=== PATIENT | female | born 1930 | race Caucasian/White ===

== ENCOUNTER 2020-10-03 11:01 | Inpatient (IN) | payer BC ==
[~2020-10-03] VITALS: Ht 147.3 cm; Wt 48.5 kg
[~2020-10-03 11:01] MED LIST: SORBITOL SOLUTION 30 ML PO ONE
--- NOTE | 2020-10-03 11:07 | NUR ---
[id number], from home, c/o slurred speech, Last known well per report was last night, BS 180, to ER bed 11, hooked to monitoring analyst, BP cuff and POX. vss. changed to hosp gown, warm blanket provided, patient AAO x 4, breathing even and unlabored. NAD noted. Dr Guerrero at bedside. NIH done. Result of 0. Started IV peripheral line at RAC 18g. blood drawn and given to director geophysical laboratory
[2020-10-03 11:24] LABS: MEAN CORPUSCULAR HGB CONC 34 g/dl (31.0-36.0); WHITE BLOOD COUNT (AUTO) 7.7 K/uL (4.3-11.0)
[2020-10-03 11:27] LABS: BASOPHILS % (AUTO) 0.6 % (0.0-2.0); LYMPHOCYTES % (AUTO) 13.4 % (20.0-44.0); MEAN CORPUSCULAR VOLUME 94 fL (82-100); MONOCYTES # (AUTO) 0.5 /CMM (0.1-1.30); MONOCYTES % (AUTO) 7.2 % (2.0-12.0); NEUTROPHILS # (AUTO) 6.1 /CMM (1.8-8.9); NEUTROPHILS % (AUTO) 78.8 % (43.0-81.0); PLATELET COUNT (AUTO) 350 /CMM (150-450); RED BLOOD CELL COUNT(AUTO) 1.66 MIL/uL (4.0-5.2)
[2020-10-03 11:29] LABS: HEMATOCRIT 16 % (33-45); HEMOGLOBIN 5.3 g/dL (11.5-14.8)
[2020-10-03] MEDS ORDERED: IV NS 0.9% 500 ML BAG IV ONE (11:30)
--- NOTE | 2020-10-03 11:41 | NUR ---
SENIOR MANUFACTURING SUPERVISOR AT BEDSIDE
[2020-10-03 11:45] LABS: CALCIUM, SERUM 8.8 mg/dL (8.5-10.1); CREATININE 0.9 mg/dL (0.6-1.3); POTASSIUM 3.8 mmol/L (3.5-5.1)
[2020-10-03 11:49] LABS: ALBUMIN 2.8 g/dL (3.4-5.0); BILIRUBIN,DIRECT 0.1 mg/dL (0.0-0.2); BILIRUBIN,TOTAL 0.4 mg/dL (0.2-1.0); TOTAL PROTEIN, SERUM 6.1 g/dL (6.4-8.2)
[2020-10-03] MEDS ORDERED: SIMV-46 PO (11:50)
[2020-10-03] MEDS ORDERED: METO50TA16 PO (11:50)
[2020-10-03] MEDS ORDERED: TICA90TA PO (11:50)
[2020-10-03] MEDS ORDERED: APIX5TAB PO (11:50)
[2020-10-03] MEDS ORDERED: LOSA25TA27 PO (11:50)
[2020-10-03] MEDS ORDERED: LEVO75TA7 PO (11:50)
[2020-10-03 11:58] LABS: LYMPHOCYTES % (MANUAL) 18 % (16-48); MONOCYTES % (MANUAL) 10 % (0-11.0)
[2020-10-03 12:01] LABS: NEUTROPHILS % (MANUAL) 99555 (42-76)
[2020-10-03] MEDS ORDERED: PANTOPRAZOLE 40 MG VIAL IV SCH (12:30)
[2020-10-03] MEDS ORDERED: MAG HYDROX/AL HYDROX/SIMETH 30 ML UDC PO PRN (13:00)
[2020-10-03] MEDS ORDERED: Z GUARD REMEDY 2 OZ OINT TP PRN (13:00)
[2020-10-03] MEDS ORDERED: ONDANSETRON HCL/PF 4 MG/2 ML VIAL IVP PRN (13:00)
[2020-10-03] MEDS ORDERED: HYDROCODONE/APAP 5/325MG TABLET PO PRN (13:00)
[2020-10-03] MEDS ORDERED: MAGNESIUM HYDROXIDE 30 ML UDC PO PRN (13:00)
[2020-10-03] MEDS ORDERED: ACETAMINOPHEN 325 MG TABLET PO PRN (13:00)
--- NOTE | 2020-10-03 15:30 | NUR ---
patient not able to provide urine sample at this time. aware
--- NOTE | 2020-10-03 15:39 | NUR ---
PATIENT SIGNED CONSENT FOR BLOOD TRANSFUSION
[2020-10-03] MEDS ORDERED: ANESTHESIA TRAY IN PYXIS 1 EA TRAY MC ONE (16:34)
--- NOTE | 2020-10-03 16:57 | NUR ---
FOLLOWED UP BLOOD UNIT FROM MAIN LAB. NOT YET READY. PER CLINICAL NURSE SPECIALIST, SHE HAS TO RESTART DOING EVERYTHING TO MAKE SURE PATIENT DOES NOT/HAVE ANTIBODY
--- NOTE | 2020-10-03 17:22 | NUR ---
SPOKE TO DR KEARNS. WOULD LIKE TO INQUIRE IF PATIENT WILL AGREE WITH COLONOSCOPY AND ENDOSCOPY. AND THE LAST TIME PATIENT TOOK ELIQUIS. WILL CALL BACK AT [phone]
--- NOTE | 2020-10-03 18:11 | NUR ---
CALLED DR KEARNS BACK AND INFORMED PATIENT AGREES WITH PROCEDURE (COLONOSCOPY AND ENDOSCOPY) DR WILL ASK PATIENT TO SIGN CONSENT TOMORROW. ALSO, PATIENT IS WILLING TO TAKE GO LIGHTLY. LAST TOOK ELIQUIS YESTERDAY AM. RECEIVED TELEPHONE ORDER FROM DR KEARNS OF 1 [address] GO LIGHTLY PO (FINISH BY TOMORROW) AND NPO STARTING MIDNIGHT (EXCEPT MEDICATION). CARRIED OUT.
[2020-10-03] MEDS ORDERED: PEG 3350/NA SULF,BICARB,CL/KCL 4,000 ML BOTTLE PO ONE (18:30)
--- NOTE | 2020-10-03 18:57 | NUR ---
PATIENT STILL UNABLE TO PROVIDE URINE SAMPLE AT THIS TIME.
--- NOTE | 2020-10-03 19:19 | NUR ---
URINE SAMPLE COLLECTED AND SENT TO LAB
--- NOTE | 2020-10-03 19:32 | NUR ---
ENDORSEMENT GIVEN TO MATT MEJIAS FOR JARRED
--- NOTE | 2020-10-03 20:00 | NUR ---
BLOOD TRANSFUSION INITIATED. 2RNS AT BEDSIDE. VSS.
[2020-10-03 20:29] LABS: CREATININE, URINE 63.7 MG/DL (30.0-125.0); URINE TOTAL PROTEIN 20.1 mg/dL (0-11.9)
--- NOTE | 2020-10-03 21:00 | NUR ---
PT CLEANED AND REPOSITIONED, VSS. BLOOD TRANSFUSING.
[2020-10-03 21:04] LABS: BILIRUBIN,URINE NEGATIVE (NEGATIVE); BLOOD, URINE TRACE-INTA Ery/uL (NEGATIVE); COLOR,URINE YELLOW (YELLOW); LEUKOCYTE ESTERASE ,URINE MODERATE (NEGATIVE); NITRITE, URINE NEGATIVE (NEGATIVE); PH,URINE 5.5 (5.0-8.0); PROTEIN,URINE NEGATIVE (NEGATIVE); UGLUCOSE NEGATIVE (NEGATIVE); UROBILINOGEN,URINE 0.2 EU/dL (0.2)
[2020-10-03] MEDS: IV NS 0.9% 1,000 ML IV PRN (21:20)
[2020-10-03 21:31] LABS: BACTERIA,URINE 4+ /HPF (None Seen); WBC,URINE 21-50 /HPF (0-3)
[2020-10-03 21:33] LABS: EOSINOPHIL,URINE RARE
--- NOTE | 2020-10-03 21:55 | NUR ---
PT RESTING COMFORTABLY. VSS. PROVIDED WITH BLANKETS AND PILLOW. BLOOD CURRENTLY BEING TRANSFUSED, VSS.
--- NOTE | 2020-10-03 23:40 | NUR ---
SECOND BLOOD TRANSFUSION INITIATED. 2 RNS AT BEDSIDE.
--- NOTE | 2020-10-04 00:22 | NUR ---
PT REQUESTED TO TURN THE LIGHTS OFF. PT RESTING COMFORTABLY. PROVIDED WITH MORE BLANKETS, VSS. BLOOD TRANSFUSING.
--- NOTE | 2020-10-04 01:33 | NUR ---
PT AWAKE IN BED, REPOSTIOEND TO LEFT. VSS. BLOOD TRANSFUSING.
--- NOTE | 2020-10-04 01:43 | NUR ---
PT HAS HAD THREE BOWEL MOVEMENTS. PT AWAKE IN BED, ON MONITOR AND PULSE OX. VSS.
--- NOTE | 2020-10-04 03:17 | NUR ---
PT REPOSITIONED TO THE RIGHT, RESTING.
--- NOTE | 2020-10-04 04:44 | NUR ---
PT AWAKE IN BED, RESTING COMFORTABLY. VSS.
--- NOTE | 2020-10-04 05:10 | NUR ---
PT HAD ANOTHER 3 B.M.
[2020-10-04 05:19] LABS: BASOPHILS # (AUTO) 0.1 /CMM (0.0-0.2); BASOPHILS % (AUTO) 0.4 % (0.0-2.0); HEMATOCRIT 32 % (33-45); HEMOGLOBIN 10.5 g/dL (11.5-14.8); LYMPHOCYTES # (AUTO) 1.2 /CMM (0.8-4.8); LYMPHOCYTES % (AUTO) 8.5 % (20.0-44.0); MEAN CORPUSCULAR HGB CONC 33 g/dl (31.0-36.0); MEAN CORPUSCULAR VOLUME 92 fL (82-100); MONOCYTES # (AUTO) 1.3 /CMM (0.1-1.30); NEUTROPHILS # (AUTO) 11.8 /CMM (1.8-8.9); NEUTROPHILS % (AUTO) 82.1 % (43.0-81.0); PLATELET COUNT (AUTO) 322 /CMM (150-450); RED BLOOD CELL COUNT(AUTO) 3.44 MIL/uL (4.0-5.2); WHITE BLOOD COUNT (AUTO) 14.4 K/uL (4.3-11.0)
[2020-10-04 05:38] LABS: ALBUMIN 2.9 g/dL (3.4-5.0); BILIRUBIN,TOTAL 1.1 mg/dL (0.2-1.0); CALCIUM, SERUM 8.5 mg/dL (8.5-10.1); CREATININE 0.9 mg/dL (0.6-1.3); MAGNESIUM 2.2 mg/dL (1.8-2.4); PHOSPHORUS 2.4 mg/dL (2.5-4.9); POTASSIUM 3.7 mmol/L (3.5-5.1); TOTAL PROTEIN, SERUM 6.6 g/dL (6.4-8.2)
--- NOTE | 2020-10-04 06:45 | NUR ---
PT RESTING COMFORTABLY. VSS.
--- NOTE | 2020-10-04 06:57 | NUR ---
CONSENT FOR EGD AND COLONOSCOPY OBTAINED OVER THE PHONE FROM THE SON, EDITH.
[2020-10-04] MEDS: LEVOTHYROXINE SODIUM 75 MCG TABLET PO SCH (07:30)
--- NOTE | 2020-10-04 08:00 | NUR ---
CONTINUES TO BE NPO AT THIS TIME. PATIENT A/OX3, BREATHING EVEN AND UNLABORED, AMBULATORY WITH STEADY GAIT. NO DISTRESS NOTED.
--- NOTE | 2020-10-04 09:21 | NUR ---
PATIENT A/OX3, REFUSING TO DRINK PREP FOR GOLYTELY. REMOVED IV LINE. REFUSING TO HAVE MRI DONE. CALLED SON EDITH RE: REFUSAL OF TREATMENT. WILL INFORM ATTENDING MD.
--- NOTE | 2020-10-04 11:54 | NUR ---
PATIENT TAKEN TO SURGERY FOR EGD AND COLONOSCOPY. CELIA HINDS AT BEDSIDE AND GAVE AN ORDER FOR HALDOL IM X1. MEDICATION GIVEN.
--- NOTE | 2020-10-04 11:56 | NUR ---
CAR HINDS AWARE OF PATIENT REFUSING MRI, PATIENT WILL NOT BE ABLE TO STAY STILL FOR THE PROCEDURE. CAR HINDS SAID ITS OK.
[2020-10-04] MEDS ORDERED: HALOPERIDOL LACTATE INJ 5 MG/ML VIAL IM ONE (12:00)
[2020-10-04] MEDS ORDERED: NEUTRA PHOS 1 POWD.PACKET PO ONE (12:00)
--- NOTE | 2020-10-04 13:11 | NUR ---
patient came back from surgery, no distress noted, vitals stable. Received orders to resume home meds and diet, to advance as tolerated.
[2020-10-04] MEDS: CEFTRIAXONE 1 G in IV D5W 50 ML IV SCH (13:24)
[2020-10-04] MEDS: IV NS 0.9% 1,000 ML IV PRN (13:39)
--- NOTE | 2020-10-04 13:55 | NUR ---
PATIENT OFFERED FOOD, BUT PATIENT REFUSED TO EAT AT THIS TIME, SHE STATED, "IM NOT HUNGRY"
--- NOTE | 2020-10-04 16:50 | NUR ---
PATIENT RESTING, NO DISTRESS NOTED. PERICARE PROVIDED.
--- NOTE | 2020-10-04 18:43 | NUR ---
PATIENT REFUSED TO EAT DINNER, FOOD AT BEDSIDE. PATIENT CALM AT THIS TIME, AMBULATORY WITH STEADY GAIT.
--- NOTE | 2020-10-04 20:43 | NUR ---
LAB CALLED REGARDING NEGATIVE COVID RESULT
--- NOTE | 2020-10-04 22:47 | NUR ---
TELE 311-3
--- NOTE | 2020-10-04 23:09 | NUR ---
REPORT GIVEN TO LYDIA MEJIAS FOR JARRED
--- NOTE | 2020-10-04 23:29 | NUR ---
PT TRANSFERED PER ACLS PROTOCOL
[2020-10-04 23:30] VITALS: BP 148/78
--- NOTE | 2020-10-04 23:30 | NUR ---
burn out scarfing operator admitting notes received pt from er safely transferred to bed ,ambulatory with assist steady, awake alert and oriented x1 verbally responsive but confused , able to make simple needs known, respirations even and unlabored with equal rise and fall of chest, denies any pain or discomfort , iv site to right ac#20g intact and patent, on neonatal intensive care unit nurse sr 96. on clear liquids, safety precautions rendered, low bed and locked, bed alarm in place, toileting offered, oriented to staff and call light and kept within reach, all needs attended at this time, skin is intact, belongings list done, will continue to monitor.
[2020-10-05] VITALS: BP 127/78
[2020-10-05 04:00] VITALS: BP 140/79
[2020-10-05] MEDS: IV NS 0.9% 1,000 ML IV PRN (04:12)
--- NOTE | 2020-10-05 06:25 | NUR ---
metal burnisher closing notes pt ambulatory with assist steady, awake alert and oriented x1 verbally responsive but confused , able to make simple needs known, respirations even and unlabored with equal rise and fall of chest, denies any pain or discomfort , iv site to right ac#20g intact and patent, on cardiac cath lab manager st 103. on clear liquids, water offered and tolerated well, safety precautions rendered, low bed and locked, bed alarm in place, toileting offered, patient currently wants to sit in chair and is within site, remains safe, refused to lay down at this time states " i want to sit up in the chair".call light kept within reach, needs frequent reorientation all needs attended at this time, will continue to monitor and endorse to next shift, despite education patient is refusing ivf as ordered.
[2020-10-05 06:28] LABS: BASOPHILS % (AUTO) 0.1 % (0.0-2.0); HEMATOCRIT 32 % (33-45); HEMOGLOBIN 10.7 g/dL (11.5-14.8); LYMPHOCYTES # (AUTO) 0.6 /CMM (0.8-4.8); LYMPHOCYTES % (AUTO) 5.1 % (20.0-44.0); MEAN CORPUSCULAR HGB CONC 33 g/dl (31.0-36.0); MEAN CORPUSCULAR VOLUME 91 fL (82-100); MONOCYTES % (AUTO) 8.2 % (2.0-12.0); NEUTROPHILS # (AUTO) 10.3 /CMM (1.8-8.9); NEUTROPHILS % (AUTO) 86.6 % (43.0-81.0); PLATELET COUNT (AUTO) 386 /CMM (150-450); RED BLOOD CELL COUNT(AUTO) 3.53 MIL/uL (4.0-5.2); WHITE BLOOD COUNT (AUTO) 11.8 K/uL (4.3-11.0)
[2020-10-05 07:04] LABS: CALCIUM, SERUM 8.7 mg/dL (8.5-10.1); CREATININE 0.8 mg/dL (0.6-1.3); MAGNESIUM 2.3 mg/dL (1.8-2.4); PHOSPHORUS 2.9 mg/dL (2.5-4.9); POTASSIUM 3.1 mmol/L (3.5-5.1)
--- NOTE | 2020-10-05 07:20 | NUR ---
ms rn received patient sitting on the hallway, awake,alert,oriented x1-2,not in any form of distress, respirations even and unlabored,no sob noted,lungs are clear,abdomen soft,positive bowel sounds,denies pain at this time.will monitor patient's condition.
[2020-10-05 08:00] VITALS: BP 143/80
[2020-10-05] MEDS ORDERED: POTASSIUM CL. PREMIX PERIPHER. 50 ML IV SCH (08:00)
[2020-10-05 08:10] LABS: PTH, INTACT 51 pg/mL (15-65)
[2020-10-05] MEDS: LEVOTHYROXINE SODIUM 75 MCG TABLET PO SCH (08:26)
--- NOTE | 2020-10-05 09:50 | NUR ---
ms rn patient removed her iv, does not want to get another one,will try later.
[2020-10-05] MEDS ORDERED: POTASSIUM CHLORIDE 20 MEQ TAB.PRT.SR PO ONE (12:00)
--- NOTE | 2020-10-05 12:00 | NUR ---
ms asael was seen by susan lucero/ orders made and carried out.
[2020-10-05] MEDS ORDERED: HALOPERIDOL LACTATE INJ 5 MG/ML VIAL IM ONE (13:00)
--- NOTE | 2020-10-05 14:00 | NUR ---
ms rn patient agreed to insert one iv at right forearm g22 w/ good venous return.
[2020-10-05] MEDS: CEFTRIAXONE 1 G in IV D5W 50 ML IV SCH (15:48)
[2020-10-05 16:00] VITALS: BP 154/72
[2020-10-05 16:07] LABS: *SPE ALPHA-1-GLOBULIN 0.3 g/dL (0.0-0.4); *SPE ALPHA-2-GLOBULIN 0.7 g/dL (0.4-1.0); *SPE M-SPIKE Not Observed g/dL (Not Observed); *SPEGAMMA GLOBULIN 1.1 g/dL (0.4-1.8)
[2020-10-05] MEDS: PANTOPRAZOLE 40 MG VIAL IV SCH (17:31)
--- NOTE | 2020-10-05 19:02 | NUR ---
ms rn on bed, no distress noted.
[2020-10-05 20:00] VITALS: BP 143/79
--- NOTE | 2020-10-05 22:00 | NUR ---
MS RN NOTE Received patient sleeping intermittently at this time. No complaints made at this time. Kept on bed clean, dry and comfortable. Refused IVF but has IV cath on right FA, intact & patent. On fall and aspiration precautions. Will continue to monitor accordingly.
[2020-10-06 07:11] LABS: BASOPHILS % (AUTO) 0.2 % (0.0-2.0); EOSINOPHILS % (AUTO) 0.1 % (0.0-6.0); HEMATOCRIT 28 % (33-45); HEMOGLOBIN 9.5 g/dL (11.5-14.8); LYMPHOCYTES % (AUTO) 9.2 % (20.0-44.0); MEAN CORPUSCULAR HGB CONC 34 g/dl (31.0-36.0); MEAN CORPUSCULAR VOLUME 92 fL (82-100); MONOCYTES % (AUTO) 9.1 % (2.0-12.0); NEUTROPHILS # (AUTO) 8.5 /CMM (1.8-8.9); NEUTROPHILS % (AUTO) 81.4 % (43.0-81.0); PLATELET COUNT (AUTO) 334 /CMM (150-450); RED BLOOD CELL COUNT(AUTO) 3.06 MIL/uL (4.0-5.2); WHITE BLOOD COUNT (AUTO) 10.4 K/uL (4.3-11.0)
[2020-10-06 07:32] LABS: CALCIUM, SERUM 8.6 mg/dL (8.5-10.1); MAGNESIUM 2.5 mg/dL (1.8-2.4); PHOSPHORUS 2.9 mg/dL (2.5-4.9)
--- NOTE | 2020-10-06 07:46 | NUR ---
MS RN CLOSING NOTE NO ACUTE CHANGES NOTED THROUGH OUT THE SHIFT. PATIENT IN STABLE CONDITION. ENDORSED TO AM RN FOR CONTINUITY OF CARE.
[2020-10-06 08:00] VITALS: BP 121/62
[2020-10-06] MEDS: PANTOPRAZOLE 40 MG VIAL IV SCH (08:39)
[2020-10-06] MEDS: LEVOTHYROXINE SODIUM 75 MCG TABLET PO SCH (08:39)
[2020-10-06] MEDS ORDERED: LEVO500T90 PO (10:41)
[2020-10-06] MEDS ORDERED: LEVOFLOXACIN (250MG) 250 MG TABLET PO SCH (11:00)
[2020-10-06] MEDS ORDERED: OMEP20TA20 PO (11:42)
[2020-10-06] MEDS ORDERED: TICA90TA PO (12:00)
--- NOTE | 2020-10-06 14:30 | NUR ---
CORSET FITTER NOTE Patient is medically cleared for discharge. Patient is a/ox3, showing no signs of acute distress or SOB, stable on RA. DC instructions provided and patient verbalized understanding. IV line removed, ID band removed. Patient refused skin assessment. All belongings are with the patient. Patient picked up by son en route to home.
== END 2020-10-06 14:50 | disposition home or self-care (01) | DRG 383 ==
LOC: ER 11:08 → TRANSITION 12:24 → MED 10-04 22:48 → TELE 10-05 02:39 → MED 10-05 16:43
PROVIDERS: ADMIT Internal Medicine; ATTEND Nurse Practitioner Acute Care
PROC: 30233N1 Transfusion of Nonautologous Red Blood Cells into Peripheral Vein, Percutaneous Approach (ICD-10-PCS; 2020-10-03)
PROC: 0DJ08ZZ Inspection of Upper Intestinal Tract, Via Natural or Artificial Opening Endoscopic (ICD-10-PCS; principal; 2020-10-04)
DX: K25.9 Gastric ulcer, unspecified as acute or chronic, without hemorrhage or perforation (principal); G93.41 Metabolic encephalopathy; N17.9 Acute kidney failure, unspecified; E87.1 Hypo-osmolality and hyponatremia; E46 Unspecified protein-calorie malnutrition; N39.0 Urinary tract infection, site not specified; G45.9 Transient cerebral ischemic attack, unspecified; K44.9 Diaphragmatic hernia without obstruction or gangrene; D50.0 Iron deficiency anemia secondary to blood loss (chronic); E03.9 Hypothyroidism, unspecified; Z86.73 Personal history of transient ischemic attack (TIA), and cerebral infarction without residual deficits; I10 Essential (primary) hypertension; E78.5 Hyperlipidemia, unspecified; D72.829 Elevated white blood cell count, unspecified; Z79.01 Long term (current) use of anticoagulants; Z98.61 Coronary angioplasty status; Z79.899 Other long term (current) drug therapy; I25.10 Atherosclerotic heart disease of native coronary artery without angina pectoris; D64.9 Anemia, unspecified; Z79.02 Long term (current) use of antithrombotics/antiplatelets; E86.1 Hypovolemia; B96.89 Other specified bacterial agents as the cause of diseases classified elsewhere
CPT/HCPCS: 36415; 70450-TC; 71045-TC; 80048-TC; 80053-TC; 80061-TC; 80076-TC; 81001; 82550-TC; 82553; 82570-TC; 82962-TC; 83540-TC; 83605-TC; 83735-TC; 83970; 84100-TC; 84155; 84155-TC; 84165; 84300-TC; 84484-TC; 85025-TC; 85730-TC; 86850-TC; 87040-TC; 87081-TC; 87086-TC; 87186-TC; 97112-TC; 97116-TC; 97530-TC; C9113; G0378; G0480; J0696; J1630; J2405; J2704; J3480; J7030; J7040; J7060; P9016-BL; U0003

== ENCOUNTER 2022-08-11 03:10 | Inpatient (IN) | payer BC ==
[~2022-08-11] VITALS: Ht 137.2 cm; Wt 50.1 kg
[2022-08-11] VITALS (13 sets, daily range): BP systolic 114–165; BP diastolic 63–104
[~2022-08-11 03:10] MED LIST changes: +LEVO500T90 PO; +LEVO75TA7 PO; +LOSA25TA27 PO; +METO50TA16 PO; +OMEP20TA20 PO; +SIMV-46 PO; -SORBITOL SOLUTION 30 ML PO ONE; +TICA90TA PO
--- NOTE | 2022-08-11 03:20 | NUR ---
PATIENT EUGENIA FROM HOME C/O SOB STARTED THIS MORNING AT 2 AM, PER PERINATAL INSTRUCTOR. PATIENT IS A/O X 3, RR LABORED. PATIENT ON 5 N/C 97%. PATIENT CONNECTED TO CARDIAC AND POX MONITOR. PATIENT IS AFEBRILE.
[2022-08-11] MEDS ORDERED: methylPREDNISolone SOD SUCC 125 MG/2ML VIAL ONE (03:24)
[2022-08-11] MEDS ORDERED: methylPREDNISolone SOD SUCC 125 MG/2ML VIAL IV ONE (03:30)
[2022-08-11] MEDS ORDERED: IPRATROPIUM NEB FS 0.5 MG/2.5 ML AMPUL.NEB NEB ONE (03:30)
[2022-08-11] MEDS ORDERED: ALBUTEROL FS 2.5 MG/0.5 ML VIAL.NEB NEB ONE (03:30)
--- NOTE | 2022-08-11 03:46 | NUR ---
LUGGAGE REPAIRER AT BEDSIDE
--- NOTE | 2022-08-11 03:47 | NUR ---
COVID SWAB COLLECTED
[2022-08-11] MEDS ORDERED: ALBUTEROL FS 2.5 MG/0.5 ML VIAL.NEB ONE (03:57)
[2022-08-11] MEDS ORDERED: IPRATROPIUM NEB FS 0.5 MG/2.5 ML AMPUL.NEB ONE (03:57)
[2022-08-11 04:11] LABS: BASOPHILS % (AUTO) 0.5 % (0.0-2.0); EOSINOPHILS % (AUTO) 1.6 % (0.0-6.0); HEMATOCRIT 36 % (33-45); HEMOGLOBIN 11.7 g/dL (11.5-14.8); LYMPHOCYTES # (AUTO) 2.9 K/uL (0.8-4.8); LYMPHOCYTES % (AUTO) 31.5 % (20.0-44.0); MEAN CORPUSCULAR HGB CONC 32 g/dl (31.0-36.0); MEAN CORPUSCULAR VOLUME 96 fL (82-100); MONOCYTES # (AUTO) 0.9 K/uL (0.1-1.30); MONOCYTES % (AUTO) 9.5 % (2.0-12.0); NEUTROPHILS # (AUTO) 5.3 K/uL (1.8-8.9); NEUTROPHILS % (AUTO) 56.9 % (43.0-81.0); PLATELET COUNT (AUTO) 330 K/uL (150-450); RED BLOOD CELL COUNT(AUTO) 3.79 MIL/uL (4.0-5.2); WHITE BLOOD COUNT (AUTO) 9.3 K/uL (4.3-11.0)
[2022-08-11 04:16] LABS: CALCIUM, SERUM 8.4 mg/dL (8.5-10.1); CARBON DIOXIDE 18 mmol/L (21-32); CHLORIDE 90 mmol/L (98-107); CREATININE 1.1 mg/dL (0.6-1.3); GLUCOSE 284 mg/dL (74-106); POTASSIUM 5.3 mmol/L (3.5-5.1); UREA NITROGEN, BLOOD 20 mg/dL (7-18)
[2022-08-11 04:27] LABS: SODIUM SERUM 119 mmol/L (136-145)
[2022-08-11 04:29] LABS: ALANINE AMINOTRANSFERASE 18 U/L (12-78); ALBUMIN 2.8 g/dL (3.4-5.0); ALKALINE PHOSPHATASE 188 U/L (46-116); ASPARTATE AMINOTRANSFERASE 39 U/L (15-37); BILIRUBIN,DIRECT 0.1 mg/dL (0.0-0.2); BILIRUBIN,TOTAL 0.6 mg/dL (0.2-1.0); TOTAL PROTEIN, SERUM 6.9 g/dL (6.4-8.2)
--- NOTE | 2022-08-11 04:29 | NUR ---
CRITICAL RESULTS : NA 119, TROP 243, LACTIC 6.66, DR KAHN MADE AWARE.
[2022-08-11] MEDS ORDERED: ASPIRIN 325 MG TABLET PO ONE (04:30)
[2022-08-11] MEDS ORDERED: ASPIRIN 325 MG TABLET ONE ×2 (04:36→09:01)
[2022-08-11] MEDS ORDERED: CEFEPIME 1 GM VIAL ONE (04:48)
[2022-08-11 04:58] LABS: BILIRUBIN,URINE NEGATIVE (NEGATIVE); COLOR,URINE YELLOW (YELLOW); LEUKOCYTE ESTERASE ,URINE NEGATIVE (NEGATIVE); NITRITE, URINE NEGATIVE (NEGATIVE); PH,URINE 5.5 (5.0-8.0); PROTEIN,URINE NEGATIVE (NEGATIVE); UGLUCOSE NEGATIVE (NEGATIVE); UROBILINOGEN,URINE 0.2 EU/dL (0.2)
[2022-08-11] MEDS ORDERED: CEFEPIME 1 GM in IV D5W 50 ML IV ONE (05:00)
[2022-08-11] MEDS ORDERED: VANCOMYCIN 1 GM in IV D5W 250 ML IV ONE (05:00)
[2022-08-11] MEDS ORDERED: LORAZEPAM INJ 2 MG/ML VIAL ONE (05:05)
[2022-08-11] MEDS ORDERED: VANCOMYCIN 1 GM VIAL ONE (05:10)
[2022-08-11] MEDS ORDERED: IPRATROPIUM NEB FS 0.5 MG/2.5 ML AMPUL.NEB NEB PRN (05:30)
[2022-08-11] MEDS ORDERED: ACETAMINOPHEN 325 MG TABLET PO PRN (05:30)
[2022-08-11] MEDS ORDERED: ALBUTEROL FS 2.5 MG/3 ML VIAL.NEB NEB PRN ×2 (05:30→10:11)
[2022-08-11] MEDS ORDERED: DEXTROSE 50%-WATER 50 ML DISP.SYRIN IV PRN (05:30)
[2022-08-11] MEDS ORDERED: MORPHINE SULFATE INJ 2 MG/ML DISP.SYRIN IV PRN (05:30)
[2022-08-11] MEDS ORDERED: ONDANSETRON HCL/PF 4 MG/2 ML VIAL IVP PRN (05:30)
[2022-08-11] MEDS ORDERED: LORAZEPAM INJ 2 MG/ML VIAL IV ONE (05:30)
[2022-08-11] MEDS ORDERED: MAGNESIUM HYDROXIDE 30 ML UDC PO PRN (05:30)
[2022-08-11] MEDS ORDERED: HYDROCODONE/APAP 5/325MG TABLET PO PRN (05:30)
[2022-08-11] MEDS ORDERED: Z GUARD REMEDY 4 OZ OINT TP PRN (05:30)
[2022-08-11] MEDS ORDERED: MAG HYDROX/AL HYDROX/SIMETH 30 ML UDC PO PRN (05:30)
[2022-08-11] MEDS ORDERED: LORAZEPAM INJ 2 MG/ML VIAL IV PRN (06:00)
--- NOTE | 2022-08-11 06:44 | NUR ---
CAREGIVER ALLIE [phone]
--- NOTE | 2022-08-11 07:11 | NUR ---
CRITICAL RESULT. LACTIC ACID 8.0 DR LOPEZ INFORMED
[2022-08-11] MEDS: PANTOPRAZOLE 40 MG TABLET.DR PO SCH (07:30)
[2022-08-11] MEDS ORDERED: PANTOPRAZOLE 40 MG TABLET.DR PO ONE (07:32)
[2022-08-11] MEDS: BLOOD SUGAR DIAGNOSTIC 1 EACH STRIP IN SCH ×4 (07:41→21:06)
[2022-08-11] MEDS ORDERED: INSULIN REGULAR, HUMAN 100 UNIT/ML 10 ML VIAL ONE (07:44)
[2022-08-11] MEDS: INSULIN REGULAR, HUMAN 100 UNIT/ML 3 ML VIAL SQ PRN ×2 (07:51→12:34)
[2022-08-11] MEDS ORDERED: OMEP40CA21 PO (08:41)
[2022-08-11] MEDS ORDERED: CEFEPIME 1 GM in IV D5W 50 ML IV SCH (09:00)
[2022-08-11] MEDS: ASPIRIN 325 MG TABLET PO SCH (09:01)
[2022-08-11] MEDS ORDERED: FUROSEMIDE 40 MG/4 ML VIAL ONE (09:04)
[2022-08-11] MEDS ORDERED: LEVOTHYROXINE SODIUM 25 MCG TABLET ONE (09:05)
[2022-08-11] MEDS ORDERED: LEVOTHYROXINE SODIUM 50 MCG TABLET ONE ×2 (09:05→09:07)
[2022-08-11] MEDS: LEVOTHYROXINE SODIUM 75 MCG TABLET PO SCH (09:08)
[2022-08-11] MEDS: FUROSEMIDE 40 MG/4 ML VIAL IV SCH ×3 (09:08→17:41)
[2022-08-11 09:27] LABS: ABG BASE EXCESS -10.5 mmol/L; ABG PCO2 29.9 mmHg (35.0-45.0); ABG PH 7.304 (7.350-7.450); ABG PO2 84.6 mmHg (75.0-100.0); COHb 0.2 % (0.5-1.5); MetHb 0.1 % (0.0-1.5); O2Hb 95.2 % (94.0-97.0); SITE, ABG Right Brachial; VENT MODE, BG nasal cannula
[2022-08-11 09:38] LABS: CALCIUM, SERUM 8.8 mg/dL (8.5-10.1); CREATININE 1.3 mg/dL (0.6-1.3); POTASSIUM 5.1 mmol/L (3.5-5.1)
--- NOTE | 2022-08-11 09:53 | NUR ---
BED 256
[2022-08-11 10:09] LABS: MAGNESIUM 2.8 mg/dL (1.8-2.4); PHOSPHORUS 5.8 mg/dL (2.5-4.9); THYROID STIMULATING HORMONE 16.94 uIU/mL (0.358-3.74)
--- NOTE | 2022-08-11 10:44 | NUR ---
PT ARRIVED IN ICU TO ROOM 256. PT ALERT OX3, FOLLOWS COMMANDS. NO ROBB CATHETER, WILL PUT ONE IN, PT AGREES. PT SETTLED IN ROOM, ATTACHED TO MONITOR. WILL CONTINUE TO MONITOR.
[2022-08-11] MEDS ORDERED: ENOXAPARIN SODIUM 60 MG/0.6 ML DISP.SYRIN SQ SCH (11:00)
--- NOTE | 2022-08-11 11:00 | NUR ---
ROBB CATHETER INSERTED AT THIS TIME PER MD ORDERS FOR ACCURATE I/O'S. ROBB IS 16 FR ROBB INSERTED WITHOUT DIFFICULTY. 300 ML OF URINE IMMEDIATELY RETURNED.
--- NOTE | 2022-08-11 11:09 | NUR ---
Report was given to MAGALIE Fish in ICU, patient transferred to bed. All care endorsed. Home medications given to med recon nurse.
[2022-08-11] MEDS ORDERED: ALPR0.255 PO (11:11)
[2022-08-11] MEDS ORDERED: TRAM50TA2 PO (11:11)
[2022-08-11] MEDS ORDERED: ACET1TAB23 PO (11:11)
[2022-08-11] MEDS ORDERED: APIX5TAB PO (11:11)
[2022-08-11] MEDS: methylPREDNISolone SOD SUCC 40 MG/ML VIAL IV SCH ×2 (13:42→21:06)
[2022-08-11 17:17] LABS: CALCIUM, SERUM 8.6 mg/dL (8.5-10.1); CREATININE 1.3 mg/dL (0.6-1.3); POTASSIUM 4.5 mmol/L (3.5-5.1)
--- NOTE | 2022-08-11 18:46 | NUR ---
END OF SHIFT NOTE: PT HAD 1400 ML OUT OF ROBB CATHETER THIS SHIFT. PT SLEPT FOR A FEW HOURS AND WOKE UP STATING SHE FEELS A LOT BETTER. BREATHING UNLABORED. PT IN GOOD SPIRITS. PT TALKED TO HER SON ON THE PHONE. PT CHECKED ON HOURLY AND PRN BY NURSING STAFF.
--- NOTE | 2022-08-11 19:44 | NUR ---
CAKE INSPECTOR PT IN BED RESTING A/O X4 FOLLOWS DIRECTIONS AND ANSWERS QUESTIONS APPROPRIATLY. ON NC 5L SAT IS 95%. NO S/S OF RESPIRATORY DISTRESS OR DISTRESS OF ANY KIND. LW 20G PATENT SALINE FLUSH. RH 20G PAIN ON FLUSH LINE WAS DC DUE TO INFLITRATION. NO MAINTANCE FLUIDS ARE RUNNING. MIDLINE IN PLACE SALINE FLUSH DRESSING IS DRY AND CLEAN. BEDSIDE MONITOR SHOWS ST TO SR VITALS WNL. ROBB CATHETER PATENT AND DRAINING YELLOW URINE. HOB ELVATED TO 30 DEGREES BED LOCK AND IN LOWEST POSITION.
[2022-08-12] VITALS (24 sets, daily range): BP systolic 106–148; BP diastolic 52–101
[2022-08-12] MEDS: methylPREDNISolone SOD SUCC 40 MG/ML VIAL IV SCH ×3 (04:14→21:01)
[2022-08-12 05:49] LABS: ALANINE AMINOTRANSFERASE 1428 U/L (12-78); ALBUMIN 2.7 g/dL (3.4-5.0); ALKALINE PHOSPHATASE 182 U/L (46-116); ASPARTATE AMINOTRANSFERASE 1476 U/L (15-37); BILIRUBIN,TOTAL 0.5 mg/dL (0.2-1.0); CALCIUM, SERUM 8.2 mg/dL (8.5-10.1); CARBON DIOXIDE 26 mmol/L (21-32); CHLORIDE 92 mmol/L (98-107); CREATININE 1.4 mg/dL (0.6-1.3); GLUCOSE 106 mg/dL (74-106); MAGNESIUM 2.1 mg/dL (1.8-2.4); POTASSIUM 3.7 mmol/L (3.5-5.1); SODIUM SERUM 127 mmol/L (136-145); TOTAL PROTEIN, SERUM 6.2 g/dL (6.4-8.2); UREA NITROGEN, BLOOD 28 mg/dL (7-18)
[2022-08-12 05:58] LABS: CHOLESTEROL 137 mg/dL (<200); HDL CHOLESTEROL 66 mg/dL (40-60); LDL 70 mg/dL (0-99); THYROID STIMULATING HORMONE 4.261 uIU/mL (0.358-3.74); TRIGLYCERIDES 40 mg/dL (30-150)
[2022-08-12 06:16] LABS: PHOSPHORUS 2.1 mg/dL (2.5-4.9)
--- NOTE | 2022-08-12 07:24 | NUR ---
RN/ICU PT IN BED SLEPT WELL THOUGHOUT THE NIGHT A/O x3 AND ASWERING QUESTIONS APPROPRIATLY. ON NC @4L BREATHING IS EVEN AND UNLABORED, VITAL SIGNS WNL. MIDLINE IS PATENT SALINE FLUSH, ABLE TO DRAW BLOOD, DRESSING INTACT, 20G RIGHT HAND PATENT SALINE FLUSH/ SALINE LOCK. ROBB CATHETER IS PATENT AND DRAINING YELLOW URINE.
[2022-08-12] MEDS ORDERED: PANTOPRAZOLE 40 MG TABLET.DR PO SCH (07:30)
--- NOTE | 2022-08-12 07:30 | NUR ---
OPENING NOTE: REPORT RECEIVED FROM PAULINE MEJIAS. ORDERS AND LABS REVIEWED DURING REPORT. PT IS ALERT OX3, COOPERATIVE. PT CHECKED ON HOURLY AND PRN BY NURSING STAFF.
[2022-08-12 07:39] LABS: HEMOGLOBIN 9.2 g/dL (11.5-14.8)
[2022-08-12 07:43] LABS: BASOPHILS % (AUTO) 0.1 % (0.0-2.0); HEMATOCRIT 27 % (33-45); LYMPHOCYTES # (AUTO) 0.5 K/uL (0.8-4.8); LYMPHOCYTES % (AUTO) 5.6 % (20.0-44.0); MEAN CORPUSCULAR HGB CONC 34 g/dl (31.0-36.0); MEAN CORPUSCULAR VOLUME 91 fL (82-100); MONOCYTES # (AUTO) 0.3 K/uL (0.1-1.30); MONOCYTES % (AUTO) 3.3 % (2.0-12.0); PLATELET COUNT (AUTO) 210 K/uL (150-450); RED BLOOD CELL COUNT(AUTO) 2.97 MIL/uL (4.0-5.2); WHITE BLOOD COUNT (AUTO) 8.8 K/uL (4.3-11.0)
[2022-08-12] MEDS ORDERED: NEUTRA PHOS 1 POWD.PACKET PO ONE (11:00)
[2022-08-12] MEDS: BLOOD SUGAR DIAGNOSTIC 1 EACH STRIP IN SCH ×4 (11:08→21:15)
[2022-08-12] MEDS: CEFEPIME 2 GM in IV D5W 100 ML IV SCH (11:16)
[2022-08-12] MEDS: FUROSEMIDE 40 MG/4 ML VIAL IV SCH ×3 (11:16→18:01)
[2022-08-12] MEDS: ASPIRIN 325 MG TABLET PO SCH (11:18)
[2022-08-12] MEDS: POTASSIUM CHLORIDE 20 MEQ TAB.PRT.SR PO SCH ×3 (11:18→12:36)
[2022-08-12] MEDS: PANTOPRAZOLE 40 MG TABLET.DR PO SCH (11:18)
[2022-08-12] MEDS: LEVOTHYROXINE SODIUM 75 MCG TABLET PO SCH (11:18)
--- NOTE | 2022-08-12 12:30 | NUR ---
PT'S BLOOD GLUCOSE IS 187. PT WAS JUST GIVEN ORANGE JUICE WITH NA PHOSPHATE POWDER. BLOOD SUGAR IS HIGH BECAUSE OF THE ORANGE JUICE. NO INSULIN GIVEN AT THIS TIME.
--- NOTE | 2022-08-12 19:34 | NUR ---
END OF SHIFT NOTE: PT HAD A FAIRLY UNEVENTFUL SHIFT. PER DR GARCIA PT IS TO STAY IN ICU. PT HAD 1450 OUT OF ROBB THIS SHIFT. PT ALERT OX4 WITHOUT DIFFICULTY. PT CHECKED ON HOURLY AND PRN BY NURSING STAFF.
[2022-08-12] MEDS: INSULIN REGULAR, HUMAN 100 UNIT/ML 3 ML VIAL SQ PRN (21:17)
[2022-08-13] VITALS (16 sets, daily range): BP systolic 98–142; BP diastolic 51–85
--- NOTE | 2022-08-13 03:40 | NUR ---
V GROOVE CUTTER PT IS AWAKE,ALERT, ORIENTED.PT IS COMFORTABLE, NO S/S OF ANY DISCOMFORT. SLEPT WELL. VSS, AFEBRILE, SCOPE-SR-ST. IV IV SITES INTACT. REMAINS ON O2-4L VIA N/C. TOLERATES WELL. URINE OUTPUT ADEQUATE. MEDICATED ORDERED. ASSISTED WITH ADL & MOBILITY. BATH GIVEN, LINEN CHANGED. PT IS STABLE ENOUGH TO BE DOWNGRADED.
[2022-08-13 04:35] LABS: HEMATOCRIT 34 % (33-45); HEMOGLOBIN 11.6 g/dL (11.5-14.8); LYMPHOCYTES # (AUTO) 0.4 K/uL (0.8-4.8); LYMPHOCYTES % (AUTO) 3.4 % (20.0-44.0); MEAN CORPUSCULAR HGB CONC 34 g/dl (31.0-36.0); MEAN CORPUSCULAR VOLUME 90 fL (82-100); MONOCYTES # (AUTO) 0.5 K/uL (0.1-1.30); MONOCYTES % (AUTO) 4.1 % (2.0-12.0); NEUTROPHILS # (AUTO) 10.4 K/uL (1.8-8.9); NEUTROPHILS % (AUTO) 92.5 % (43.0-81.0); PLATELET COUNT (AUTO) 289 K/uL (150-450); RED BLOOD CELL COUNT(AUTO) 3.82 MIL/uL (4.0-5.2); WHITE BLOOD COUNT (AUTO) 11.3 K/uL (4.3-11.0)
[2022-08-13] MEDS: methylPREDNISolone SOD SUCC 40 MG/ML VIAL IV SCH ×3 (05:02→21:04)
[2022-08-13 05:07] LABS: ALANINE AMINOTRANSFERASE 1139 U/L (12-78); ALBUMIN 2.9 g/dL (3.4-5.0); ALKALINE PHOSPHATASE 178 U/L (46-116); ASPARTATE AMINOTRANSFERASE 435 U/L (15-37); BILIRUBIN,TOTAL 0.5 mg/dL (0.2-1.0); CALCIUM, SERUM 8.3 mg/dL (8.5-10.1); CARBON DIOXIDE 27 mmol/L (21-32); CHLORIDE 92 mmol/L (98-107); CREATININE 1.5 mg/dL (0.6-1.3); GLUCOSE 132 mg/dL (74-106); MAGNESIUM 2.1 mg/dL (1.8-2.4); POTASSIUM 3.7 mmol/L (3.5-5.1); SODIUM SERUM 129 mmol/L (136-145); TOTAL PROTEIN, SERUM 6.7 g/dL (6.4-8.2); UREA NITROGEN, BLOOD 37 mg/dL (7-18)
--- NOTE | 2022-08-13 07:30 | NUR ---
OUTSOLE HANDLER AM NOTES PT IN BED, AWAKE ALERT ORIENTED X 3, ABLE TO EXPRESS NEEDS. ON NC @4L BREATHING IS EVEN AND UNLABORED, VITAL SIGNS WNL. MIDLINE IS PATENT SALINE FLUSH, ABLE TO DRAW BLOOD, DRESSING INTACT, 20G RIGHT HAND PATENT SALINE FLUSH/ SALINE LOCK. ROBB CATHETER IS PATENT AND DRAINING YELLOW URINE. POC DISCUSSED, VERBALIZED UNDERSTANDING. PER HER, AM CARE DONE THIS MORNING. BED BOUND, BED LOW LOCKED, HOB UP X 30 DEG. WILL CONTINUE TO MONITOR.
[2022-08-13] MEDS: LEVOTHYROXINE SODIUM 75 MCG TABLET PO SCH (07:40)
[2022-08-13] MEDS: PANTOPRAZOLE 40 MG TABLET.DR PO SCH (07:41)
[2022-08-13] MEDS: BLOOD SUGAR DIAGNOSTIC 1 EACH STRIP IN SCH (07:56)
[2022-08-13] MEDS: ASPIRIN 325 MG TABLET PO SCH (08:24)
[2022-08-13] MEDS: CEFEPIME 2 GM in IV D5W 100 ML IV SCH (08:25)
[2022-08-13] MEDS ORDERED: POLYETHYLENE GLYCOL 3350 17 GM POWD.PACK PO PRN (08:30)
[2022-08-13] MEDS: FUROSEMIDE 40 MG/4 ML VIAL IV SCH ×3 (08:39→16:42)
[2022-08-13] MEDS: POTASSIUM CHLORIDE 20 MEQ TAB.PRT.SR PO SCH ×3 (08:42→11:06)
--- NOTE | 2022-08-13 09:30 | NUR ---
RN NOTES DUE MEDS GIVEN
--- NOTE | 2022-08-13 09:30 | NUR ---
SS consult requested over the weekend for pt. who is unhappy with caregiver. SW will follow up and provide referrals for caregiving services.
[2022-08-13] MEDS: ENOXAPARIN SODIUM 30 MG/0.3 ML DISP.SYRIN SQ SCH (10:03)
[2022-08-13] MEDS: GLUCERNA SHAKE 237 ML CAN PO SCH ×2 (11:06→17:40)
--- NOTE | 2022-08-13 12:15 | NUR ---
Director Social Note SW received a consult request for information re new caregivers. Pt. is an 89 y.o. White female. Pt. stated that she had a bad experience with her old caregiver. Per Pt. report, her son Amaury Carroll, was in the process of finding her a new caregiver. WALDEMAR offered pt. information on caregiver brochures and provided pt. with senior resource guide in which pt. accepted them.
--- NOTE | 2022-08-13 13:40 | NUR ---
RN NOTES PATIENT TRANSFERRED TO [address] [place] [address]. BEDSIDE REPORT GIVEN TO ZANA MEJIAS FOR CONTINUATION OF CARE. VS WNL. PATIENT IN NO DISTRESS. BELONGINGS CHECKED WITH ZANA. CALL LIGHT WITHIN REACH SAFETY MEASURES IN PLACE
--- NOTE | 2022-08-13 14:00 | NUR ---
RN NOTES PATIENT TRANSFERRED FROM ICU VIA GURNEY WITH NO SIGN OF DISTRESS.V/S TAKEN STABLE AND RECORDED. PATIENT WAS ORIENTED TO ROOM SETUP AND EDUCATED ON THE USE OF CALL LIGHT. BELONGING LIST CHECKED. SKIN ASSESSMENT DONE. PATIENT AWAKE IN BED RESTING, A/O X 3. NO S/S OF PAIN NOTED AT THIS TIME. ON 4L OXYGEN VIA NC, NO DISTRESS OR SHORTNESS OF BREATH NOTED. IV ACCESS JAYANT MIDLINE, INTACT, PATENT, FLUSHING WELL. PATIENT WITH EXTERNAL RADIOPHARMACIST WITH CURRENT READING OF SR WITH HR OF 90, NO CARDIAC DISTRESS NOTED AT THIS TIME. FALL AND SAFETY MEASURES IN PLACE, BED ALARM ON, BED IN LOW LOCK POSITION, CALL LIGHT AND TABLE WITHIN EASY REACH, SIDE RAILS UP X2. WILL CONTINUE TO MONITOR.
--- NOTE | 2022-08-13 14:15 | NUR ---
RN NOTE PATIENT SKIN ASSESSMENT WAS DONE, BILATERAL HEEL REDNESS, PICTURES TAKEN, REPOSITIONED PATIENT AND PILLOW PLACE ON FEET, WOUND CARE CONSULT PLACED.
--- NOTE | 2022-08-13 18:39 | NUR ---
RN CLOSING NOTE PATIENT AWAKE IN BED RESTING, A/O X 3-4. NO S/S OF PAIN NOTED AT THIS TIME. ON 4L OXYGEN VIA NC, NO DISTRESS OR SHORTNESS OF BREATH NOTED. IV ACCESS JAYANT MIDLINE, R ARM #20G, INTACT, PATENT, FLUSHING WELL. PATIENT WITH EXTERNAL BEAD WORKER SEWING WITH CURRENT READING OF SR WITH HR OF 95, NO CARDIAC DISTRESS NOTED AT THIS TIME. SCHEDULE MEDICATIONS ADMINISTERED. PATIENT WAS REPOSITIONED PER PROTOCOL. FALL AND SAFETY MEASURES IN PLACE, BED ALARM ON, BED IN LOW LOCK POSITION, CALL LIGHT AND TABLE WITHIN EASY REACH, SIDE RAILS UP X2. WILL ENDORSE TO BUDGET ENGINEER.
--- NOTE | 2022-08-13 19:30 | NUR ---
noc rn opening received patient in room, a/ox4. no s/s of apparent distress on 4lpm of o2 via nc. has bed mobility. denies pain at this time. tele monitor reading sr 85bpm with pvc's. 2 iv access on saline lock. call light within reach, oriented and encouraged with the use of call light. molina cath draining clear, elizabeth urine. safety in place. needs attended for now. will continue with patient's plan of care.
[2022-08-14] VITALS: BP 122/75
[2022-08-14] MEDS: TEMAZEPAM 15 MG CAPSULE PO PRN (00:02)
[2022-08-14 04:00] VITALS: BP 117/73
[2022-08-14] MEDS: methylPREDNISolone SOD SUCC 40 MG/ML VIAL IV SCH ×3 (05:12→21:14)
[2022-08-14 05:53] LABS: HEMATOCRIT 35 % (33-45); HEMOGLOBIN 11.8 g/dL (11.5-14.8); LYMPHOCYTES # (AUTO) 0.4 K/uL (0.8-4.8); LYMPHOCYTES % (AUTO) 4.5 % (20.0-44.0); MEAN CORPUSCULAR HGB CONC 34 g/dl (31.0-36.0); MEAN CORPUSCULAR VOLUME 90 fL (82-100); MONOCYTES # (AUTO) 0.5 K/uL (0.1-1.30); MONOCYTES % (AUTO) 5.6 % (2.0-12.0); NEUTROPHILS # (AUTO) 8.7 K/uL (1.8-8.9); NEUTROPHILS % (AUTO) 89.9 % (43.0-81.0); PLATELET COUNT (AUTO) 276 K/uL (150-450); RED BLOOD CELL COUNT(AUTO) 3.85 MIL/uL (4.0-5.2); WHITE BLOOD COUNT (AUTO) 9.7 K/uL (4.3-11.0)
[2022-08-14 06:29] LABS: ALANINE AMINOTRANSFERASE 824 U/L (12-78); ALBUMIN 2.9 g/dL (3.4-5.0); ALKALINE PHOSPHATASE 171 U/L (46-116); ASPARTATE AMINOTRANSFERASE 185 U/L (15-37); BILIRUBIN,TOTAL 0.6 mg/dL (0.2-1.0); CALCIUM, SERUM 8.3 mg/dL (8.5-10.1); CARBON DIOXIDE 30 mmol/L (21-32); CHLORIDE 92 mmol/L (98-107); CREATININE 1.5 mg/dL (0.6-1.3); GLUCOSE 126 mg/dL (74-106); MAGNESIUM 2.3 mg/dL (1.8-2.4); PHOSPHORUS 4.3 mg/dL (2.5-4.9); POTASSIUM 3.7 mmol/L (3.5-5.1); SODIUM SERUM 128 mmol/L (136-145); TOTAL PROTEIN, SERUM 6.8 g/dL (6.4-8.2); UREA NITROGEN, BLOOD 45 mg/dL (7-18)
--- NOTE | 2022-08-14 06:35 | NUR ---
noc rn closing patient in bed, a/ox4 verbalizing that she still wants to sleep. no s/s of apparent distress on 4lpm of o2 via nc. denies pain. no iv fluids running at this time. all needs attended. all scheduled medications administered. safety kept in place throughout shift. will endorse to morning shift rn for continuity of patient care.
--- NOTE | 2022-08-14 07:26 | NUR ---
DIALYSIS REGISTERED NURSE OPENING NOTE RECEIVED PT AWAKE AND RESTING IN BED. PT A/O X3-4, ABLE TO MAKE NEEDS KNOWN. ON O2 AT 4L/MIN VIA NASAL CANNULA, TOLERATING WELL. NO SOB NOTED. NOT IN ANY SIGN OF RESPIRATORY DISTRESS. ON TELE LOCK TECHNICIAN WITH CURRENT READING OF SINUS RHYTHM WITH PAC'S, HR 83. NO C/O CARDIAC DISTRESS VOICED OUT AT THIS TIME. IV ACCESS IN LFA G#22 INTACT AND PATENT. SAFETY MEASURES IN PLACE: BED IN LOWEST AND LOCKED POSITION, SIDE RAILS UPX2, BED ALARM ON, AND CALL LIGHT WITHIN REACH. WILL CONTINUE TO MONITOR PT. Addendum: 08/14/22 at 0809 by DANIEL WRIGHT RN DELETE ERROR ENTRY: IV ACCESS LFA G#22. ADDENDUM: IV ACCESS IN JAYANT MIDLINE AND RIGHT ARM G #20, SALINE LOCK, INTACT, AND PATENT.
--- NOTE | 2022-08-14 07:35 | NUR ---
WOUND CARE CONSULT: RECEIVED CONSULT FOR BILATERAL HEEL REDNESS. PT NOTED TO HAVE BLANCHABLE REDNESS TO HEELS AND TO SACRUM. THERE IS SOME DISCOLORATION TO FEET AND REDNESS TO RT DORSAL FOOT WHICH PT STATES IS CHRONIC. CEZAR SERRANO NOTED. RECOMMENDATIONS MADE FOR SKIN PROTECTION. DISCUSSED WITH NURSING STAFF. MD IN AGREEMENT WITH PLAN OF CARE. Addendum: 08/14/22 at 0738 by MIMI OMER WNDNU PT [facility] BED.
[2022-08-14 08:00] VITALS: BP 106/67
[2022-08-14] MEDS: PANTOPRAZOLE 40 MG TABLET.DR PO SCH (08:30)
[2022-08-14] MEDS: LEVOTHYROXINE SODIUM 75 MCG TABLET PO SCH (08:30)
[2022-08-14] MEDS: GLUCERNA SHAKE 237 ML CAN PO SCH ×3 (08:36→16:49)
[2022-08-14] MEDS: ASPIRIN 325 MG TABLET PO SCH (08:39)
[2022-08-14] MEDS: ENOXAPARIN SODIUM 30 MG/0.3 ML DISP.SYRIN SQ SCH (09:05)
[2022-08-14] MEDS: CEFEPIME 2 GM in IV D5W 100 ML IV SCH (09:47)
[2022-08-14] MEDS: FUROSEMIDE 40 MG/4 ML VIAL IV SCH ×3 (10:06→17:35)
[2022-08-14] MEDS: POTASSIUM CHLORIDE 20 MEQ TAB.PRT.SR PO SCH ×3 (10:06→12:18)
[2022-08-14 12:00] VITALS: BP 146/54
[2022-08-14 16:00] VITALS: BP 109/61
--- NOTE | 2022-08-14 19:10 | NUR ---
SALES ADMINISTRATOR CLOSING NOTE PT AWAKE AND RESTING IN BED. PT A/O X4, ABLE TO MAKE NEEDS KNOWN. ON O2 AT 4L/MIN VIA NASAL CANNULA, TOLERATING WELL. NO SOB NOTED. NOT IN ANY SIGN OF RESPIRATORY DISTRESS. ON TELE CULTURE ROOM WORKER WITH CURRENT READING OF SINUS RHYTHM WITH PACS AND PVCS, HR 86. NO C/O CARDIAC DISTRESS VOICED OUT AT THIS TIME. IV ACCESS IN JAYANT MIDLINE AND R ARM G#20, INTACT AND PATENT. ROBB CATH INTACT AND DRAINING WELL. ALL NEEDS ATTENDED. KEPT CLEAN AND COMFORTABLE. SAFETY MEASURES IN PLACE: BED IN LOWEST AND LOCKED POSITION, SIDE RAILS UPX2, BED ALARM ON, AND CALL LIGHT WITHIN REACH. ENDORSED TO HAT BLOCKER NURSE FOR JARRED.
--- NOTE | 2022-08-14 19:43 | NUR ---
FIELD SERVICE COORDINATOR OPENING NOTE PT AWAKE AND RESTING IN BED. PT A/O X4, ABLE TO MAKE NEEDS KNOWN. ON O2 AT 4L/MIN VIA NASAL CANNULA, TOLERATING WELL. NO SOB NOTED. NOT IN ANY SIGN OF RESPIRATORY DISTRESS. ON TELE GEAR AND SPLINE GRINDER WITH CURRENT READING OF SINUS RHYTHM WITH PACS AND PVCS, HR 86. NO C/O CARDIAC DISTRESS VOICED OUT AT THIS TIME. IV ACCESS IN JAYANT MIDLINE AND R ARM G#20, INTACT AND PATENT. ROBB CATH INTACT AND DRAINING WELL. ALL NEEDS ATTENDED. KEPT CLEAN AND COMFORTABLE. SAFETY MEASURES IN PLACE: BED IN LOWEST AND LOCKED POSITION, SIDE RAILS UPX2, BED ALARM ON, AND CALL LIGHT WITHIN REACH.
[2022-08-14 20:00] VITALS: BP 133/89
[2022-08-15] VITALS (9 sets, daily range): BP systolic 133–151; BP diastolic 56–93
[2022-08-15] MEDS: methylPREDNISolone SOD SUCC 40 MG/ML VIAL IV SCH ×3 (04:43→20:43)
[2022-08-15 05:58] LABS: BASOPHILS % (AUTO) 0.1 % (0.0-2.0); HEMATOCRIT 38 % (33-45); HEMOGLOBIN 12.9 g/dL (11.5-14.8); LYMPHOCYTES # (AUTO) 0.4 K/uL (0.8-4.8); LYMPHOCYTES % (AUTO) 4.2 % (20.0-44.0); MEAN CORPUSCULAR HGB CONC 34 g/dl (31.0-36.0); MEAN CORPUSCULAR VOLUME 91 fL (82-100); MONOCYTES # (AUTO) 0.7 K/uL (0.1-1.30); MONOCYTES % (AUTO) 7.9 % (2.0-12.0); NEUTROPHILS # (AUTO) 8.2 K/uL (1.8-8.9); NEUTROPHILS % (AUTO) 87.8 % (43.0-81.0); PLATELET COUNT (AUTO) 294 K/uL (150-450); RED BLOOD CELL COUNT(AUTO) 4.21 MIL/uL (4.0-5.2); WHITE BLOOD COUNT (AUTO) 9.4 K/uL (4.3-11.0)
--- NOTE | 2022-08-15 06:32 | NUR ---
COMPLEX CASE MANAGER CLOSING NOTE PT AWAKE AND RESTING IN BED. PT A/O X4, ABLE TO MAKE NEEDS KNOWN. ON O2 AT 4L/MIN VIA NASAL CANNULA, TOLERATING WELL. NO SOB NOTED. NOT IN ANY SIGN OF RESPIRATORY DISTRESS. ON TELE ARTIFACTS CONSERVATOR WITH CURRENT READING OF SINUS RHYTHM WITH PACS AND PVCS, HR 70S. NO C/O CARDIAC DISTRESS VOICED OUT AT THIS TIME. IV ACCESS IN JAYANT MIDLINE AND R ARM G#20, INTACT AND PATENT. ROBB CATH INTACT AND DRAINING WELL. ALL NEEDS ATTENDED. KEPT CLEAN AND COMFORTABLE. SAFETY MEASURES IN PLACE: BED IN LOWEST AND LOCKED POSITION, SIDE RAILS UPX2, BED ALARM ON, AND CALL LIGHT WITHIN REACH. PT NPO SINCE MIDNIGHT FOR L HEART CATH TODAY WITH DR MARINELLI @2PM.
[2022-08-15 06:34] LABS: ALANINE AMINOTRANSFERASE 698 U/L (12-78); ALBUMIN 3.2 g/dL (3.4-5.0); ALKALINE PHOSPHATASE 163 U/L (46-116); ASPARTATE AMINOTRANSFERASE 121 U/L (15-37); BILIRUBIN,TOTAL 0.7 mg/dL (0.2-1.0); CALCIUM, SERUM 8.9 mg/dL (8.5-10.1); CARBON DIOXIDE 32 mmol/L (21-32); CHLORIDE 93 mmol/L (98-107); CREATININE 1.6 mg/dL (0.6-1.3); GLUCOSE 140 mg/dL (74-106); MAGNESIUM 2.4 mg/dL (1.8-2.4); PHOSPHORUS 4.4 mg/dL (2.5-4.9); POTASSIUM 4.2 mmol/L (3.5-5.1); SODIUM SERUM 131 mmol/L (136-145); TOTAL PROTEIN, SERUM 7.2 g/dL (6.4-8.2); UREA NITROGEN, BLOOD 56 mg/dL (7-18)
--- NOTE | 2022-08-15 07:25 | NUR ---
SETTLEMENT WORKER OPENING NOTE RECEIVED PT AWAKE AND RESTING IN BED. PT A/O X4, ABLE TO MAKE NEEDS KNOWN. ON O2 AT 4L/MIN VIA NASAL CANNULA, TOLERATING WELL. NO SOB NOTED. NOT IN ANY SIGN OF RESPIRATORY DISTRESS. ON TELE PALLIATIVE NURSE WITH CURRENT READING OF SINUS RHYTHM WITH PACS, HR 95. NO C/O CARDIAC DISTRESS VOICED OUT AT THIS TIME. IV ACCESS IN JAYANT MIDLINE AND R ARM G#20, INTACT AND PATENT. ROBB CATH INTACT AND DRAINING WELL. SAFETY MEASURES IN PLACE: BED IN LOWEST AND LOCKED POSITION, SIDE RAILS UPX2, BED ALARM ON, AND CALL LIGHT WITHIN REACH. WILL CONTINUE TO MONITOR PT.
[2022-08-15] MEDS: GLUCERNA SHAKE 237 ML CAN PO SCH ×3 (08:00→17:00)
--- NOTE | 2022-08-15 08:00 | NUR ---
RN MARIELENA RECEIVED A CALL FROM [facility] WITH CRITICAL LAB RESULT OF TROPONIN [id number] MONREAL AND MADE AWARE OF THE CRITICAL LAB VALUE WITH NO NEW ORDERS AT THIS TIME.
[2022-08-15] MEDS: PANTOPRAZOLE 40 MG TABLET.DR PO SCH (08:15)
[2022-08-15] MEDS: LEVOTHYROXINE SODIUM 75 MCG TABLET PO SCH (08:15)
[2022-08-15] MEDS: ASPIRIN 325 MG TABLET PO SCH (08:16)
[2022-08-15] MEDS ORDERED: IV SET PRIMARY PUMP SET 1 EA INFUS.SET MC ONE (08:50)
[2022-08-15] MEDS ORDERED: IV NS 0.9% 1,000 ML ONE (08:50)
[2022-08-15] MEDS ORDERED: NITROGLYCERIN IN 5 % DEXTROSE 250 ML IV ONE (08:51)
[2022-08-15] MEDS ORDERED: LIDOCAINE HCL/MPF 1% 30 ML VIAL IJ ONE (08:51)
[2022-08-15] MEDS ORDERED: IODIXANOL 150 ML IV ONE (08:51)
[2022-08-15] MEDS: ENOXAPARIN SODIUM 30 MG/0.3 ML DISP.SYRIN SQ SCH (10:00)
--- NOTE | 2022-08-15 10:00 | NUR ---
RN NOTE PT LEFT THE UNIT VIA BED TO HOME DELIVERY DRIVER WITH 2 HOME DELIVERY DRIVER STAFF FOR A LEFT HEART CATH AND POSSIBLE PCI.
[2022-08-15] MEDS ORDERED: FENTANYL PF 100MCG/2ML AMPUL ONE (10:05)
[2022-08-15] MEDS ORDERED: MIDAZOLAM HCL 2 MG/2ML VIAL ONE (10:05)
--- NOTE | 2022-08-15 10:27 | NUR ---
RN NOTE LOVENOX SCHEDULED AT 1000 NOT ADMINISTERED. PT STILL AT LICENSED SALES PRODUCER.
[2022-08-15] MEDS ORDERED: IODIXANOL 320MG/ML 50 ML IV ONE (11:19)
[2022-08-15] MEDS ORDERED: hydrALAZINE HCL IV 20 MG VIAL ONE (11:34)
--- NOTE | 2022-08-15 12:02 | NUR ---
RN NOTE GLUCERNA SCHEDULED AT 1200 NOT ADMINISTERED. PT STILL AT SIGN PAINTER.
--- NOTE | 2022-08-15 13:00 | NUR ---
ICU/RN NO SIGNS OF BLEEDING AT BILATERAL FEMORAL ARTERY SITE, DRESSING REMAINS IN PLACE, CLEAN DRY AND INTACT. BILATERAL LOWER EXTREMITIES WARM TO TOUCH, OF NORMAL COLOR FOR ETHNICITY. PEDAL PULSES PALPABLE ON BOTH FEET.
--- NOTE | 2022-08-15 13:31 | NUR ---
RN NOTE RECEIVED A CALL FROM ICU NURSE, MAGALIE GALLO. PER CLEO PT WAS TRANSFERRED TO ICU FROM MENTAL RETARDATION NURSE. PT IS S/P LEFT HEART ART/VENTRICLE ANGIO AND WILL NEED INTENSIVE CARE MONITORING. REPORT GIVEN TO CLEO. PT'S BELONGINGS BROUGHT TO ICU AND PT'S TELE BOX GIVEN TO DEB, DIGITAL CONTENT MANAGER.
--- NOTE | 2022-08-15 14:20 | NUR ---
ICU/RN NO SIGNS OF BLEEDING FEMORAL ARTERY SITE, DRESSING REMAINS IN PLACE, CLEAN DRY AND INTACT. BILATERAL LOWER EXTREMITIES WARM TO TOUCH, OF NORMAL COLOR FOR ETHNICITY. PEDAL PULSES PALPABLE ON BOTH FEET.
--- NOTE | 2022-08-15 15:16 | NUR ---
ICU/RN NO SIGNS OF BLEEDING ON FEMORAL SITES, BILATERAL LOWER EXTREMITIES WARM TO TOUCH, BILATERAL PEDAL PULSE EASILY PALPABLE. PT SITTING AT 30 DEGREES PER ORDER.
--- NOTE | 2022-08-15 17:00 | NUR ---
ICU/RN NO SIGNS OF BLEEDING ON FEMORAL SITES, BILATERAL LOWER EXTREMITIES WARM TO TOUCH, BILATERAL PEDAL PULSE EASILY PALPABLE. PT SITTING AT 30 DEGREES PER ORDER, EATING DINER. PT DOES NOT REPORT ANY DISCOMFORT OR PAIN.
--- NOTE | 2022-08-15 17:39 | NUR ---
ICU/RN REPORT GIVEN TO DANIEL MEJIAS IN 3WEST.
--- NOTE | 2022-08-15 17:55 | NUR ---
RN NOTE PT BACK TO THE UNIT VIA BED FROM ICU BROUGHT IN BY ICU NURSE MAGALIE GALLO AND REPORT RECEIVED. PT ON S/P LEFT HEART ART/VENTRICLE ANGIO WITH LEFT AND RIGHT FEMORAL ACCESS SITES. PER CLEO, NO STENTS PLACED BY DR. ADEN, ONLY MANUAL PRESSURE AFTER SHEATH WAS REMOVED. DRESSING IN PLACE, INTACT, WITH NO ACTIVE BLEEDING NOTED ON FEMORAL SITES. BILATERAL LOWER EXTREMITIES WARM TO TOUCH AND BILATERAL PEDAL PULSE EASILY PALPABLE. PT DENIES PAIN OR DISCOMFORT AT THIS TIME. PT SITTING AT 30 DEGREES PER ORDER. PT IS PLACED BACK ON TELE VICTORIAN LITERATURE PROFESSOR WITH CURRENT READING OF SINUS TACH WITH PACS, HR 102. NO C/O CARDIAC DISTRESS VOICED OUT AT THIS TIME. VITAL SIGNS: BP 148/81, P 102, R 23, SPO2 98% AT 4L/MIN VIA NASAL CANNULA.
--- NOTE | 2022-08-15 18:45 | NUR ---
ENTRY LEVEL PROGRAMMER CLOSING NOTE PT AWAKE AND RESTING IN BED. PT A/O X4, ABLE TO MAKE NEEDS KNOWN. ON O2 AT 4L/MIN VIA NASAL CANNULA, TOLERATING WELL. NO SOB NOTED. NOT IN ANY SIGN OF RESPIRATORY DISTRESS. ON TELE FIT MODEL WITH CURRENT READING OF SINUS TACH WITH PAC'S, HR 103. NO C/O CARDIAC DISTRESS VOICED OUT AT THIS TIME. IV ACCESS IN JAYANT MIDLINE, R ARM G#20, AND LFA G#20 SALINE LOCK, INTACT AND PATENT. PT ON S/P LEFT HEART ART/VENTRICLE ANGIO VIA LEFT AND RIGHT FEMORAL SITES, DRESSING IN PLACE, INTACT, WITH NO ACTIVE BLEEDING NOTED ON FEMORAL SITES. BILATERAL LOWER EXTREMITIES WARM TO TOUCH AND BILATERAL PEDAL PULSE EASILY PALPABLE. PT DENIES PAIN OR DISCOMFORT AT THIS TIME. ROBB CATH INTACT AND DRAINING WELL. ALL NEEDS ATTENDED. KEPT CLEAN AND COMFORTABLE. SAFETY MEASURES IN PLACE: BED IN LOWEST AND LOCKED POSITION, SIDE RAILS UPX2, BED ALARM ON, AND CALL LIGHT WITHIN REACH. WILL ENDORSE TO METAL TANK ERECTOR NURSE FOR JARRED.
--- NOTE | 2022-08-15 19:30 | NUR ---
RN OPENING NOTES RECEIVED PT IN BED, AWAKE, WATCHING TV. AOx4, ABLE TO MAKE NEEDS KNOWN. ON NC 4LPM AND TOLERATING WELL. NO SOB NOTED. NO S/SX OF RESPIRATORY DISTRESS NOTED. TELE MONITOR DETECTS SINUS RHYTHM WITH RATE OF 70s. IV ACCESS IN JAYANT MIDLINE, R ARM #20G, AND LFA #20G. IV IS INTACT, PATENT, AND FLUSHING WELL. SAFETY PRECAUTIONS IN PLACE: BED IN LOWEST, LOCKED POSITION, SIDERAILS UPx2, AND BRAKES ON. TABLE AND CALL LIGHT WITHIN REACH. ALL NEEDS MET AT THIS TIME. Addendum: 08/16/22 at 0057 by PARISA MÁRQUEZ RN BILATERAL FEMORAL DRESSINGS ARE C/D/I.
[2022-08-16] VITALS: BP 117/76
--- NOTE | 2022-08-16 04:04 | NUR ---
RN NOTES ADMINISTERED ATIVAN FOR ANXIETY PER MD ORDER. VS WNL.
[2022-08-16 05:00] VITALS: BP 108/69
[2022-08-16] MEDS: methylPREDNISolone SOD SUCC 40 MG/ML VIAL IV SCH (05:18)
[2022-08-16 07:03] LABS: CALCIUM, SERUM 9.2 mg/dL (8.5-10.1); CARBON DIOXIDE 30 mmol/L (21-32); CHLORIDE 94 mmol/L (98-107); CREATININE 1.4 mg/dL (0.6-1.3); GLUCOSE 153 mg/dL (74-106); SODIUM SERUM 135 mmol/L (136-145); UREA NITROGEN, BLOOD 62 mg/dL (7-18)
--- NOTE | 2022-08-16 07:30 | NUR ---
RN Receiving Report. Patient AOx4, able to express her own concerns. Patient is awake reports no discomfort, no signs of distress. Introduced myself to patient and discussed plan of care, pt verbalized understanding. All safety precautions taken, call light and table within reach, bed at lowest position.
--- NOTE | 2022-08-16 07:31 | NUR ---
RN CLOSING NOTES PT IN BED, ASLEEP, AWAKENS TO VERBAL STIMULI. AOx4, ABLE TO MAKE NEEDS KNOWN. ON NC 3LPM AND TOLERATING WELL. NO SOB NOTED. NO S/SX OF RESPIRATORY DISTRESS NOTED. TELE MONITOR DETECTS SINUS RHYTHM WITH RATE OF 70s. IV ACCESS IN JAYANT MIDLINE, R ARM #20G, AND LFA #20G. IV IS INTACT, PATENT, AND FLUSHING WELL. ALL ORDERS CARRIED OUT. ALL NEEDS MET. PT KEPT CLEAN, DRY, AND INTACT. BILATERAL FEMORAL DRESSINGS ARE C/D/I. SAFETY PRECAUTIONS IN PLACE: BED IN LOWEST, LOCKED POSITION, SIDERAILS UPx2, AND BRAKES ON. TABLE AND CALL LIGHT WITHIN REACH. WILL ENDORSE TO ONCOMING SHIFT FOR JARRED.
[2022-08-16] MEDS: LEVOTHYROXINE SODIUM 75 MCG TABLET PO SCH (07:47)
[2022-08-16] MEDS: PANTOPRAZOLE 40 MG TABLET.DR PO SCH (07:48)
[2022-08-16 08:00] VITALS: BP 140/79
[2022-08-16] MEDS: GLUCERNA SHAKE 237 ML CAN PO SCH ×3 (08:10→16:47)
[2022-08-16] MEDS: CARVEDILOL 3.125 MG TABLET PO SCH ×2 (08:49→20:56)
[2022-08-16] MEDS: ASPIRIN 325 MG TABLET PO SCH (08:49)
[2022-08-16] MEDS: ENOXAPARIN SODIUM 30 MG/0.3 ML DISP.SYRIN SQ SCH (09:00)
[2022-08-16 12:00] VITALS: BP 121/60
[2022-08-16 17:49] VITALS: BP 119/61
--- NOTE | 2022-08-16 18:29 | NUR ---
RN Closing Note Patient AOx4 able to express her own concerns,. Patient remained safe throughout shift. Patient states she does not want to go through any procedures, states she is too old and does mot want to be bothered. States she will talk to her son and daughter in law. Administered medications as ordered, provided care as needed. All safety precautions taken, call light and table within reach and bed at lowest position. Will endorse to night nurse for continuity of care.
--- NOTE | 2022-08-16 19:45 | NUR ---
RN OPENING NOTES RECEIVED PT LAYING IN BED, ASLEEP, AWAKENS TO VERBAL STIMULI. AOx4, ABLE TO MAKE NEEDS KNOWN. ON 2LPM AND TOLERATING WELL. NO SOB NOTED. NO S/SX OF RESPIRATORY DISTRESS NOTED. TELE MONITOR DETECTS SINUS RHYTHM WITH RATE OF 80s. IV ACCESS IN JAYANT MIDLINE #20G AND LAC #20G. IV IS INTACT, PATENT, AND FLUSHING WELL. SAFETY PRECAUTIONS IN PLACE: BED IN LOWEST, LOCKED IN POSITION, SIDERAILS UPx2, AND BRAKES ON. TABLE AND CALL LIGHT WITHIN REACH. ALL NEEDS MET AT THIS TIME.
[2022-08-16 20:00] VITALS: BP 116/60
[2022-08-17] VITALS (7 sets, daily range): BP systolic 103–140; BP diastolic 51–69
--- NOTE | 2022-08-17 07:12 | NUR ---
RN CLOSING NOTES PT LAYING IN BED, ASLEEP, AWAKENS TO VERBAL STIMULI. AOx4, ABLE TO MAKE NEEDS KNOWN. ON NC 2LPM AND TOLERATING WELL. NO SOB NOTED. NO S/SX OF RESPIRATORY DISTRESS NOTED. TELE MONITOR DETECTS SINUS RHYTHM WITH RATE OF 80s. IV ACCESS IN JAYANT MIDLINE #20G AND LFA #20G. IV IS INTACT, PATENT, AND FLUSHING WELL. ALL ORDERS CARRIED OUT. ALL NEEDS MET. PT KEPT CLEAN AND DRY. SAFETY PRECAUTIONS IN PLACE: BED IN LOWEST, LOCKED IN POSITION, SIDERAILS UPx2, AND BRAKES ON. TABLE AND CALL LIGHT WITHIN REACH. WILL ENDORSE TO ONCOMING SHIFT FOR JARRED.
--- NOTE | 2022-08-17 07:30 | NUR ---
RN OPENING NOTE- PT LAYING IN BED, ASLEEP. AOx4, ABLE TO MAKE NEEDS KNOWN. ON 2LPM AND TOLERATING WELL. NO SOB NOTED. NO S/SX OF RESPIRATORY DISTRESS NOTED. TELE MONITOR AT 78. IV ACCESS IN JAYANT MIDLINE #20G AND LAC #20G. IV SPOKE W DR MONREAL ABOUT CODE STATUS CHANGE FROM FC TO DNR DNI. . SAFETY PRECAUTIONS IN PLACE: BED IN LOWEST, LOCKED IN POSITION, SIDERAILS UPx2, AND BRAKES ON. TABLE AND CALL LIGHT WITHIN REACH. MONITOR / ASSIST
[2022-08-17] MEDS: PANTOPRAZOLE 40 MG TABLET.DR PO SCH (07:48)
[2022-08-17] MEDS: LEVOTHYROXINE SODIUM 75 MCG TABLET PO SCH (07:48)
[2022-08-17] MEDS: GLUCERNA SHAKE 237 ML CAN PO SCH ×3 (08:13→16:35)
[2022-08-17] MEDS: ASPIRIN 325 MG TABLET PO SCH (08:55)
[2022-08-17] MEDS: CARVEDILOL 3.125 MG TABLET PO SCH ×2 (08:59→20:32)
[2022-08-17] MEDS: methylPREDNISolone SOD SUCC 40 MG/ML VIAL IV SCH (09:00)
--- NOTE | 2022-08-17 09:14 | NUR ---
RN NOTE- SPOKE W DR GARCIA AND DR MONREAL REGARDING CODE STATUS. DR MONREAL SPOKE W SON EDITH AND PT. AGREED TO PLACE PT ON DNR / DNI. COMPLIED
[2022-08-17] MEDS: ENOXAPARIN SODIUM 30 MG/0.3 ML DISP.SYRIN SQ SCH (10:12)
--- NOTE | 2022-08-17 18:26 | NUR ---
RN CLOSING NOTE, PT LAYING IN BED, ASLEEP. AOx4, ABLE TO MAKE NEEDS KNOWN. ON 2LPM AND TOLERATING WELL. NO SOB NOTED. NO S/SX OF RESPIRATORY DISTRESS NOTED. TELE MONITOR AT 70S. IV ACCESS IN JAYANT MIDLINE #20G AND LAC #20G. IV. ROBB CATH W 350 CLEAR YELLOW UA OUTPUT. PO INTAKE FAIR. ENCOURAGED INTAKE, POSSIBLE HOSPICE PLACEMENT, SAFETY PRECAUTIONS IN PLACE: BED IN LOWEST, LOCKED IN POSITION, SIDERAILS UPx2, AND BRAKES ON. TABLE AND CALL LIGHT WITHIN REACH. MONITOR / ASSIST
--- NOTE | 2022-08-17 20:00 | NUR ---
RECEIVED PATIENT IN BED, ALERT AND ORIENTED X3, FORGETFUL, 2LPM VIA NC, NO SOB AT REST, GENERALIZED WEAKNESS, ROBB CATHETER DRAINING WELL, KEPT SAFE, WILL CONTINUE TO MONITOR.
[2022-08-17] MEDS: TEMAZEPAM 15 MG CAPSULE PO PRN (20:31)
[2022-08-18] VITALS: BP 129/64
[2022-08-18 00:06] VITALS: BP 129/64
[2022-08-18 04:00] VITALS: BP 121/60
[2022-08-18 04:10] VITALS: BP 121/60
--- NOTE | 2022-08-18 06:42 | NUR ---
ALERT/ORIENTED, NO DISTRESS, NO COMPLAIN OF PAIN, LETHARGIC, DYSPNEA, ROBB CATHETER DRAINING, CLEAR YELLOW URINE, DNR/DNI, EF 15%, DNR, AT RISK FOR SUDDEN CARDIAC , SR ON THE TELE, POSSIBLE HOSPICE, SUPPORTIVE CARE, FALL PRECAUTION.
--- NOTE | 2022-08-18 07:18 | NUR ---
MS RN OPENING NOTE RECEIVED PT IN BED AWAKE. PATIENT IS ALERT AND ORIENTED X4. PATIENT IS ON 2LPM VIA NASAL CANULA AND TOLERATING WELL. NO SOB NOTED. NO S/SX OF RESPIRATORY DISTRESS NOTED. WITH TELE MONITOR WITH SINUS RHYTHM WITH RATE OF 70-80s. NO COMPLAIN OF PAIN OR DISCOMFORT AT THIS TIME. WITH IV ACCESS ON LAC #20G ON SALINE LOCK, PATENT AND INTACT. SAFETY PRECAUTIONS IN PLACE: BED IN LOWEST, LOCKED IN POSITION, SIDERAILS UPx2, AND BRAKES ON. TABLE AND CALL LIGHT WITHIN REACH. COMFORT MEASURES PROVIDED.
[2022-08-18 08:00] VITALS: BP 144/77
[2022-08-18] MEDS: GLUCERNA SHAKE 237 ML CAN PO SCH ×2 (08:00→12:00)
--- NOTE | 2022-08-18 08:10 | NUR ---
MS RN NOTE PATIENT SEEN BY DR. MONREAL. COMFORT MEASURES PROVIDED. IN STABLE CONDITION. SEEN BY MASON TENDER WITH ORDERS CARRIED OUT.
[2022-08-18] MEDS: ASPIRIN 325 MG TABLET PO SCH (09:21)
[2022-08-18] MEDS: LEVOTHYROXINE SODIUM 75 MCG TABLET PO SCH (09:21)
[2022-08-18] MEDS: PANTOPRAZOLE 40 MG TABLET.DR PO SCH (09:21)
[2022-08-18 09:22] VITALS: BP 144/77
[2022-08-18] MEDS: methylPREDNISolone SOD SUCC 40 MG/ML VIAL IV SCH (09:22)
[2022-08-18] MEDS: CARVEDILOL 3.125 MG TABLET PO SCH (09:22)
[2022-08-18] MEDS: ENOXAPARIN SODIUM 30 MG/0.3 ML DISP.SYRIN SQ SCH (09:23)
[2022-08-18] MEDS ORDERED: CARV3.122 PO (09:48)
[2022-08-18] MEDS ORDERED: ASPI-992 PO (09:48)
--- NOTE | 2022-08-18 10:45 | NUR ---
MS RN NOTE WITH ORDER FOR DISCHARGE, PATIENT HEALTH TEACHING DONE REGARDING DISCHARGE AND DISCHARGE INSTRUCTIONS. VERBALIZED UNDERSTANDING AND APPRECIATION. COMFORT MEASURES PROVIDED. PICTURES TAKEN INDICATED. MEDICATIONS PICKED UP FROM THE PHARMACY AND PLACED IN THE BELONGINGS BAG. COMFORT MEASURES PROVIDED. IN STABLE CONDITION.
--- NOTE | 2022-08-18 12:40 | NUR ---
MS RN NOTE PATIENT DISCHARGED TO HOME ON HOSPICE CARE. PATIENT IN STABLE CONDITION. IV ACCESS REMOVED AND COVERED WITH DRY DRESSING. PROCEDURE TOLERATED WELL. ID BAND REMOVED. PATIENT PICKED UP BY TRANSPORT SERVICE, IN STABLE CONDITION. BELONGINGS BROUGHT BY PATIENT INCLUDING MEDICATIONS. PATIENT WHEELED ON A GURNEY WITH OXYGEN IN STABLE CONDITION. ENDORSED ACCORDINGLY.
== END 2022-08-18 13:37 | disposition hospice, home (50) | DRG 280 ==
LOC: ER 03:21 → ICU 09:58 → TELE 08-13 13:30 → ICU 08-15 12:14 → TELE 08-15 17:48 → MED 08-18 08:45
PROVIDERS: ADMIT Nurse Practitioner Family; ATTEND Internal Medicine
PROC: 05HB33Z Insertion of Infusion Device into Right Basilic Vein, Percutaneous Approach (ICD-10-PCS; 2022-08-11)
PROC: 4A023N7 Measurement of Cardiac Sampling and Pressure, Left Heart, Percutaneous Approach (ICD-10-PCS; principal; 2022-08-15)
PROC: B211YZZ Fluoroscopy of Multiple Coronary Arteries using Other Contrast (ICD-10-PCS; 2022-08-15)
PROC: B410YZZ Fluoroscopy of Abdominal Aorta using Other Contrast (ICD-10-PCS; 2022-08-15)
DX: I21.4 Non-ST elevation (NSTEMI) myocardial infarction (principal); I50.23 Acute on chronic systolic (congestive) heart failure; J96.01 Acute respiratory failure with hypoxia; K72.00 Acute and subacute hepatic failure without coma; N17.0 Acute kidney failure with tubular necrosis; E44.0 Moderate protein-calorie malnutrition; E87.1 Hypo-osmolality and hyponatremia; E87.20 Acidosis, unspecified; N13.4 Hydroureter; J90 Pleural effusion, not elsewhere classified; I11.0 Hypertensive heart disease with heart failure; Z20.822 Contact with and (suspected) exposure to COVID-19; E03.9 Hypothyroidism, unspecified; E78.5 Hyperlipidemia, unspecified; Z95.820 Peripheral vascular angioplasty status with implants and grafts; Z79.02 Long term (current) use of antithrombotics/antiplatelets; Z79.899 Other long term (current) drug therapy; E87.5 Hyperkalemia; R73.9 Hyperglycemia, unspecified; E88.09 Other disorders of plasma-protein metabolism, not elsewhere classified; I73.9 Peripheral vascular disease, unspecified; I25.10 Atherosclerotic heart disease of native coronary artery without angina pectoris; I70.8 Atherosclerosis of other arteries
CPT/HCPCS: 36410; 36415; 36600; 71045-TC; 75625; 76700-TC; 80048-TC; 80053-TC; 80061-TC; 80076-TC; 82803-TC; 82962-TC; 83605-TC; 83735-TC; 83880; 84100-TC; 84439-TC; 84443-TC; 84484-TC; 85025-TC; 85610-TC; 85730-TC; 87040-TC; 87081-TC; 92526; 92611-TC; 93307-TC; 94799-TC; 97110-TC; 97116-TC; 97530-TC; C1769; C1887; C1894; C9803; G0378; G0500; J0360; J0692; J1644; J1650; J1815; J1940; J2060; J2250; J2920; J2930; J3010; J3370; J3490; J7030; J7040; J7050; J7060; Q9967